=== PATIENT | male | born 1960 | race Hispanic/Latino ===

== ENCOUNTER → 2020-05-05 | Day surgery (SDC) | payer OTHER ==
[2020-04-30 10:17] LABS: BASOPHILS # (AUTO) 0.1 (0.0-0.1); BASOPHILS % 0.7 % (0.0-1.0); EOSINOPHILS # (AUTO) 0.3 (0.0-0.4); EOSINOPHILS % 4.1 % (0.0-6.0); HEMATOCRIT 46.6 % (38.2-49.6); HEMOGLOBIN 15.2 g/dL (14.0-18.0); LYMPHOCYTES # (AUTO) 1.5 (1.0-3.2); LYMPHOCYTES % 20.8 % (18.0-39.1); MEAN CORPUSCULAR HEMOGLOBIN 28.8 pg (28-32); MEAN CORPUSCULAR HGB CONC 32.6 g/dL (31-35); MEAN CORPUSCULAR VOLUME 88.4 fL (81-99); MONOCYTES # (AUTO) 0.4 (0.2-0.8); MONOCYTES % 5.6 % (4.4-11.3); NEUTROPHILS # (AUTO) 4.9 (2.1-6.9); NEUTROPHILS % 68.4 % (38.7-80.0); PLATELET COUNT 308 x10e3/uL (140-360); RED BLOOD COUNT 5.27 x10e6/uL (4.3-5.7); RED CELL DISTRIBUTION WIDTH 13.3 % (11.7-14.4)
[2020-04-30 10:38] LABS: ALANINE AMINOTRANSFERASE 22 IU/L (0-55); ALBUMIN 3.7 g/dL (3.5-5.0); ALBUMIN/GLOBULIN RATIO 1.1 (0.8-2.0); ALKALINE PHOSPHATASE 87 IU/L (40-150); ANION GAP 11.9 mmol/L (8-16); BLOOD UREA NITROGEN 13 mg/dL (7-26); BUN/CREATININE RATIO 16 (6-25); CALCIUM 9.1 mg/dL (8.4-10.2); CARBON DIOXIDE 27 mmol/L (22-29); CHLORIDE 104 mmol/L (98-107); CREATININE, SERUM 0.83 mg/dL (0.72-1.25); EST GLOMERULAR FILTRATION RATE > 60 ML/MIN (60-); GLUCOSE 152 mg/dL (74-118); POTASSIUM 3.9 mmol/L (3.5-5.1); SODIUM 139 mmol/L (136-145)
[2020-04-30 10:43] LABS: INR 0.94
[2020-04-30 10:44] LABS: PARTIAL THROMBOPLASTIN TIME 26.8 seconds (23.8-35.5)
[~2020-05-05] VITALS: Ht 170.2 cm; Wt 69.4 kg
[2020-05-05] VITALS (15 sets, daily range): BP systolic 121–165; BP diastolic 76–103
[~2020-05-05] MED LIST: ASPIRIN 325 MG TAB ONE; ASPIRIN 81 MG CHEW TAB ONE; CYTOMEL25 MCG PO; FENTANYL CITRATE/PF 100MCG/2 ML INJ ONE; HEPARIN SOD/SOD CHLORIDE 2,000 ML ONE; IOPAMIDOL 370 MG/ML 200 ML INFUS..BTL INJ ONE; LIDOCAINE HCL 2% LOCAL 20 ML VIAL ONE; METOPROLOL SUCC25 MG PO; MIDAZOLAM HCL 2 MG/2 ML VIAL ONE; SODIUM CHLORIDE 0.9% 1000ML 1,000 ML ONE; SYNTHROID100 MCG PO; TICAGRELOR 90 MG TABLET ONE
--- NOTE | 2020-05-05 11:15 | Operative Report ---
DATE OF PROCEDURE: 05/05/2020 SURGEON: Khurram Arevalo MD PROCEDURE PERFORMED: 1. Left heart catheterization. 2. Selective coronary angiography. 3. Distal LAD drug-eluting stent PCI using Resolute Brando 2 x 15 drug-eluting stent. 4. Moderate sedation time, 30 minutes. 5. Right common femoral artery six-Lao Angio-Seal closure. 6. Ultrasound-guided access. PROCEDURE COMPLICATIONS: None. ESTIMATED BLOOD LOSS: Less than 15 mL. PROCEDURE SUMMARY: After consent was obtained, the patient was prepped and draped in a sterile fashion. The right femoral site was locally infiltrated with 2% lidocaine, moderate sedation was administered with fentanyl and Versed throughout this procedure. Micropuncture kit was used to access the right common femoral artery, six-Lao sheath was placed. A six-Lao JL4, JR4, and XB LAD 3.5, six-Lao no side-holes guide catheter were used for this procedure. Selective angiography of left main and right coronary artery and aortic valve was crossed. FINDINGS: 1. LV pressure is 162/14 with end-diastolic pressure 16. 2. Aortic pressure is 162/93. 3. No left ventriculogram was performed. 4. Left main has 20% to 30% mid to distal stenosis with mild to moderate calcifications. 5. The LAD is large in caliber arises from the left main, ostial EF 30% stenosis in the proximal segment, has 50% stenosis prior to giving a diagonal that has 50% proximal stenosis itself and is small in caliber. The distal LAD has 30% stenosis beyond the diagonal and a tubular area of 80% stenosis, which was a target lesion. Preprocedure postprocedure EVANS flow was 3 after this LAD PCI stenosis went from 80% pre to 0% post, no dissections or perforations. 6. The left circumflex arises from the left main, has a hazy area of 60% stenosis prior to giving an obtuse marginal. The obtuse marginal has 50% focal stenosis preceding to terminal branch bifurcation with a small caliber. 7. The right coronary artery is dominant, has proximal 30%, mid 30%, distal 30% and at the crux level an area of 40% after which RPDA and RPLV arise. This is a dominant RCA. 8. Intervention, heparin was used to maintain an ACT over 250. Aspirin 81 mg, Brilinta 180 mg loading was administered. A run-through wire was positioned in the distal LAD and area of 80% stenosis was treated with primary stenting using Resolute Brando 2.0 x 15, deployed to 12 atmospheres. CONCLUSION: LAD drug-eluting stent PCI in a patient with multivessel coronary artery disease. Recommend aspirin 81 mg daily. Brilinta 90 mg every 12 hours, 4 hour bedrest after Angio-Seal closure. Depending on response to medical therapy optimization, can consider staged left circumflex FFR/PCI depending on symptomatic response. Initiate statin. Khurram Arevalo MD AFBryn/MODKelsey /[id number]
== END | disposition home or self-care (01) ==
LOC: CATH LAB 07:46
PROVIDERS: ATTEND Internal Medicine Cardiovascular Disease
DX: I25.118 Atherosclerotic heart disease of native coronary artery with other forms of angina pectoris (principal); E11.59 Type 2 diabetes mellitus with other circulatory complications; I10 Essential (primary) hypertension; E78.5 Hyperlipidemia, unspecified; E03.9 Hypothyroidism, unspecified; Z01.812 Encounter for preprocedural laboratory examination; Z11.59 Encounter for screening for other viral diseases
CPT/HCPCS: 36415; 76937; 80053; 85025; 85610; 85730; 92928; 93458; C1760; C1769; C1876; C1884; J2001; J2250; J3010; J7030; Q9967; U0002; 99152; 99153